=== PATIENT | male | born 1985 | race Caucasian/White ===

== ENCOUNTER 2020-09-16 15:54 | Emergency (ER) | payer SELFPAY ==
[~2020-09-16] VITALS: Ht 172.7 cm; Wt 85.0 kg
--- NOTE | 2020-09-16 16:01 | ED.ADGEN ---
General Adult HPI: HPI: Patient is a 35 year old male coming in via EMS after left ankle injury. Patient was playing Frisbee golf when he stepped off of a concrete slab and says he dorsiflex Review of Systems: Review of Systems: Constitutional: Denies fever or chills. [] Eyes: Denies change in visual acuity. [] HENT: Denies nasal congestion or sore throat. [] Respiratory: Denies cough or shortness of breath. [] Cardiovascular: Denies chest pain or edema. [] GI: Denies abdominal pain, nausea, vomiting, bloody stools or diarrhea. [] : Denies dysuria. [] Musculoskeletal: Denies back pain or joint pain. [] Integument: Denies rash. [] Neurologic: Denies headache, focal weakness or sensory changes. [] Endocrine: Denies polyuria or polydipsia. [] Lymphatic: Denies swollen glands. [] Psychiatric: Denies depression or anxiety. [] Allergies: Allergies: Allergies Coded Allergies Type Severity Reaction Last Updated Verified No Known Drug Allergies 09/16/20 No Physical Exam: PE: Constitutional: Well developed, well nourished, no acute distress, non-toxic appearance. [] HENT: Normocephalic, atraumatic, bilateral external ears normal, oropharynx moist, no oral exudates, nose normal. [] Eyes: PERRLA, EOMI, conjunctiva normal, no discharge. [] Neck: Normal range of motion, no tenderness, supple, no stridor. [] Cardiovascular:Heart rate regular rhythm, no murmur [] Lungs & Thorax: Bilateral breath sounds clear to auscultation [] Abdomen: Bowel sounds normal, soft, no tenderness, no masses, no pulsatile masses. [] Skin: Warm, dry, no erythema, no rash. [] Back: No tenderness, no CVA tenderness. [] Extremities: No tenderness, no cyanosis, no clubbing, ROM intact, no edema. [] Tenderness over distal fibula, plantar flexion intact with squeeze of calf. Neurologic: Alert and oriented X 3, normal motor function, normal sensory function, no focal deficits noted. [] Psychologic: Affect normal, judgement normal, mood normal. [] EKG: EKG: [] Heart Score: Risk Factors: Risk Factors: DM, Current or recent (<one month) smoker, HTN, HLP, family history of CAD, obesity. Risk Scores: Score 0 - 3: 2.5% MACE over next 6 weeks - Discharge Home Score 4 - 6: 20.3% MACE over next 6 weeks - Admit for Clinical Observation Score 7 - 10: 72.7% MACE over next 6 weeks - Early Invasive Strategies Radiology/Procedures: Radiology/Procedures: Three-view left ankle study Clinical indications: Fall and ankle pain. FINDINGS: There is a minimally displaced oblique fracture of the distal shaft of the left fibula. There is widening of the medial aspect of the mortise ankle joint consistent with disruption of the deltoid ligament. No lytic process is seen. IMPRESSION: Fracture of the distal left fibula. Disruption of the deltoid ligament. [] Course & Med Decision Making: Course & Med Decision Making Pertinent Labs and Imaging studies reviewed. (See chart for details) [] Dragon Disclaimer: Dragon Disclaimer: This electronic medical record was generated, in whole or in part, using a voice recognition dictation system. Departure Departure Impression: Primary Impression: Closed left fibular fracture Disposition: 01 DC HOME SELF CARE/HOMELESS Condition: STABLE Referrals: [facility] Patient Instructions: Cast or Splint Care Additional Instructions: Keep leg elevated as much possible. Take Tylenol or tramadol for pain, avoid ibuprofen and other NSAIDs Scripts Tramadol Hcl (TRAMADOL HCL) 50 Mg Tablet 50 MG PO Q6HRS PRN for PAIN for 5 Days, #15 TAB Prov: KISHA BREAUX MD 09/16/20 KISHA BREAUX MD Sep 16, 2020 16:01
--- NOTE | 2020-09-16 16:55 | RAD ---
Three-view left ankle study Clinical indications: Fall and ankle pain. FINDINGS: There is a minimally displaced oblique fracture of the distal shaft of the left fibula. The re is widening of the medial aspect of the mortise ankle joint consistent with disruption of the delt oid ligament. No lytic process is seen. IMPRESSION: Fracture of the distal left fibula. Disruption of the deltoid ligament. Electronically signed by: Evgeny Harris MD (09/16/2020 4:53 PM) [id number]
[2020-09-16] MEDS ORDERED: TRAM50TA PO (17:05)
[2020-09-16] MEDS ORDERED: HYDROcodone/APAP 5/325MG 1 TAB TABLET PO ONE (17:30)
[2020-09-16 18:34] VITALS: BP 134/67
== END 2020-09-16 18:36 | disposition home or self-care (01) ==
LOC: ER 15:54
DX: S82.402A Unspecified fracture of shaft of left fibula, initial encounter for closed fracture (principal); W18.31XA Fall on same level due to stepping on an object, initial encounter; Y93.89 Activity, other specified; Y92.89 Other specified places as the place of occurrence of the external cause; Y99.8 Other external cause status
CPT/HCPCS: 29515; 73610; 99285